=== PATIENT | male | born 1960 | race Caucasian/White ===

== ENCOUNTER 2017-11-26 14:01 | Emergency (ER) | payer BC ==
[2017-11-26] MEDS ORDERED: Albuterol/Ipratropium 3.0-0.5 MG/3 ML Neb Soln NEB ONE (14:31)
--- NOTE | 2017-11-26 14:46 | EDM.PDOC ---
ED HPI GENERAL MEDICAL PROBLEM - General Chief Complaint: General Stated Complaint: PER PT' HIS LUNGS ARE SWOLLEN Time Seen by Provider: 11/26/17 14:25 Source of Information: Reports: Patient History Limitations: Reports: No Limitations - History of Present Illness INITIAL COMMENTS - FREE TEXT/NARRATIVE: HISTORY AND PHYSICAL: History of present illness: [Patient comes to the emergency room complaining of cough for the past 3 weeks. Thought that he was getting better 10 days ago but over the past week his cough has been getting worse. Sputum is palomino to green in color. He feels that it's difficult to take a deep breath but denies any actual shortness of breath and difficulty breathing. No pain in his chest. He's had some decreased appetite but he is forcing himself to eat and drink. He is urinating and having normal bowel movements. No abdominal pain nausea or vomiting. No fever or chills. Gets more tired than usual with less exertion. Admits to smoking a pack a day for his entire adult life. Is leaving the area later this afternoon and will be on the road for the next 2 weeks.] Review of systems: As per history of present illness and below otherwise all systems reviewed and negative. Past medical history: As per history of present illness and as reviewed below otherwise noncontributory. Surgical history: As per history of present illness and as reviewed below otherwise noncontributory. Social history: No reported history of drug or alcohol abuse. Family history: As per history of present illness and as reviewed below otherwise noncontributory. Physical exam: HEENT: Atraumatic, normocephalic. Oral mucous membranes are pink and moist. Throat is clear. Neck supple, no lymphadenopathy., Lungs: Clear to auscultation, breath sounds equal bilaterally. No wheezing, crackles, rales. Heart: S1S2, regular. Abdomen: Soft, nondistended, nontender. Pelvis: Stable nontender. Genitourinary: Deferred. Rectal: Deferred. Extremities: Atraumatic. Neurovascular unremarkable. Neuro: Awake, alert, oriented. Motor and sensory unremarkable throughout. Exam nonfocal. Therapeutics: [DuoNeb] Impression: [URI] Plan: [Chest feels less tight and congested following DuoNeb. PT would like to be dc' d to home. Rx written for azithromycin 250 mg #6 sig 2 by mouth today then one daily total taken, albuterol inhaler #1 take 1-2 puffs every 4-6 hours as needed for shortness of breath wheezing and cough 0 refills. Strict return precautions are reviewed. He is in agreement with today's plan.] Definitive disposition and diagnosis as appropriate pending reevaluation and review of above. - Related Data Allergies Allergy/AdvReac Type Severity Reaction Status Date / Time No Known Allergies Allergy Verified 11/26/17 14:12 Home Meds: Home Meds . [No Known Home Meds] 11/26/17 [History] Past Medical History - Past Health History Medical/Surgical History: Denies Medical/Surgical History - Infectious Disease History Other Infectious Disease History: states he was tested for Hep C and never recieved results. - Past Surgical History HEENT Surgical History: Reports: Tonsillectomy Musculoskeletal Surgical History: Reports: Ganglion Cyst Social & Family History - Family History Family Medical History: Noncontributory - Tobacco Use Smoking Status *Q: Current Every Day Smoker Years of Tobacco use: 45 Packs/Tins Daily: 1 - Caffeine Use Caffeine Use: Reports: Coffee - Recreational Drug Use Recreational Drug Use: No ED ROS GENERAL - Review of Systems Review Of Systems: ROS reveals no pertinent complaints other than HPI. ED EXAM, GENERAL - Physical Exam Exam: See Below Course - Vital Signs Last Recorded V/S: Last Vital Signs Temp 98.2 F 11/26/17 14:10 Pulse 86 11/26/17 14:10 Resp 18 11/26/17 14:10 BP 124/76 11/26/17 14:10 Pulse Ox 92 L 11/26/17 14:10 - Orders/Labs/Meds Orders: Active Orders 24 hr Category Date Time Status RT Aerosol Therapy [RC] ASDIRECTED Care 11/26/17 14:31 Active Meds: Medications Discontinued Medications Generic Name Dose Route Start Last Admin Trade Name Freq PRN Reason Stop Dose Admin Albuterol/Ipratropium 3 ml 11/26/17 14:31 11/26/17 14:47 Duoneb 3.0-0.5 Mg/3 Ml NEB 11/26/17 14:32 3 ml ONETIME ONE Administration Departure - Departure Time of Disposition: 15:15 Disposition: Home, Self-Care 01 Condition: Good Clinical Impression: URI (upper respiratory infection) - Discharge Information Instructions: Upper Respiratory Infection, Adult, [id number] Referrals: PCP,None [Primary Care Provider] - Forms: ED Department Discharge Additional Instructions: The following information is given to patients seen in the emergency department who are being discharged to home. This information is to outline your options for follow-up care. We provide all patients seen in our emergency department with a follow-up referral. The need for follow-up, as well as the timing and circumstances, are variable depending upon the specifics of your emergency department visit. If you don't have a primary care physician on staff, we will provide you with a referral. We always advise you to contact your personal physician following an emergency department visit to inform them of the circumstance of the visit and for follow-up with them and/or the need for any referrals to a consulting specialist. The emergency department will also refer you to a specialist when appropriate. This referral assures that you have the opportunity for follow-up care with a specialist. All of these measure are taken in an effort to provide you with optimal care, which includes your follow-up. Under all circumstances we always encourage you to contact your private physician who remains a resource for coordinating your care. When calling for follow-up care, please make the office aware that this follow-up is from your recent emergency room visit. If for any reason you are refused follow-up, please contact the [facility] emergency department at and asked to speak to the emergency department charge nurse. [facility] [address] [place] [id number] Establish care with a local primary care provider at the clinic listed above and follow-up there in 48-72 hours. Take medications as prescribed. Return to ER as needed as discussed. - My Orders Last 24 Hours: My Active Orders 11/26/17 14:31 RT Aerosol Therapy [RC] ASDIRECTED - Assessment/Plan Last 24 Hours: My Active Orders 11/26/17 14:31 RT Aerosol Therapy [RC] ASDIRECTED
== END 2017-11-26 15:37 | disposition home or self-care (01) ==
LOC: MW.ED 14:01
DX: J06.9 Acute upper respiratory infection, unspecified (principal); F17.210 Nicotine dependence, cigarettes, uncomplicated
CPT/HCPCS: 94640; 99283; 99285-25